=== PATIENT | male | born 1980 | race Caucasian/White ===

== ENCOUNTER 2021-07-26 00:06 | Emergency (ER) | payer SELFPAY ==
[2021-07-26 00:09] VITALS: BP 123/75; PULSE 65; RESP 24; TEMP 36.6; O2SAT 100
--- NOTE | 2021-07-26 03:23 | PC.NURSE ---
pt walked to room states I feel better I'm just going to go . Advised to stay for eval walked out of ed
== END 2021-07-27 03:44 | disposition left against medical advice (07) ==
LOC: ANHED 03:28
DX: R10.9 Unspecified abdominal pain (principal)
CPT/HCPCS: 99199

== ENCOUNTER 2025-08-06 06:18 | Emergency (ER) | payer OTHER, SELFPAY ==
--- NOTE | ~2025-08-06 | XR_ITS ---
Examination: XR chest 1V portable Clinical History: cough, weakness Comparison: None Technique: Portable AP Findings: Heart size normal. Lungs clear. Mild hyperinflation. No acute bony abnormality. IMPRESSION: 1. No acute cardiopulmonary findings given portable technique. Reviewed, dictated and finalized at location R. CLERK
[2025-08-06 06:20] VITALS: BP 115/69; PULSE 89; RESP 20; TEMP 36.9; O2SAT 99
[2025-08-06 06:48] VITALS: BP 120/75; PULSE 88; RESP 17; O2SAT 97
[2025-08-06 06:49] VITALS: O2SAT 98
[2025-08-06 07:13] VITALS: BP 116/76; PULSE 83; RESP 19; O2SAT 98
[2025-08-06 07:27] LABS: Influenza A QL RT-PCR Negative (Negative); Influenza B QL RT-PCR Positive (Negative); RSV RNA, RT-PCR Negative (Negative); SARS-CoV-2 RNA PCR Negative (Negative)
--- OUTSIDE RECORDS SUMMARY | 2025-08-06 07:43 | XMS_ITS | Clinical Summary ---
Author Organization [facility] Address [address] [place] [id number] Care Team Providers Care Er Manager Name Role Phone Unavailable Primary Care Provider Unavailabl e Active Problems No known active problems Social History Tobacco Use Types Packs/Day Years Used Date Smoking Tobacco: Never Assessed Sex and Gender Information Value Date Recorded Sex Assigned at Male 11/08/2023 2:07 PM CDT Legal Sex Male 6:42 AM CDT Gender Identity Male 11/08/2023 2:07 PM CDT Sexual Orientation Straight 11/08/2023 2: 07 PM CDT Last Filed Vital Signs Vital Sign Reading Time Taken Comments Blood Pressure 100/70 03/14/2023 8:31 AM CDT Pulse - - Temperature - - Respiratory Rate - - Oxygen Saturation - - Inhaled Oxygen Concentration - - Weight 77.6 kg (171 lb) 03/14/2023 8:31 AM CDT Height 177.8 cm (5' 10) 03/14/2023 8:31 AM CDT Body Mass Index 24.54 03/14/2023 8:31 AM CDT Plan of Treatment Health Maintenance Due Date Last Done Comments HEPATITIS B VACCINES (2 of 3 - 19+ 3-dose series) 11/14/2006 10/17/2006, 10/17/2006, 06/14/2006, Additional history exists INFLUENZA VACCINE (#1) 2025 9, 07/19/2018, 06/30/2006 DTAP/TDAP/TD VACCINES (2 - T d or Tdap) 01/20/2031 01/20/2021 HPV VACCINES (No Doses Required) Completed Insurance [employer]ESS
--- OUTSIDE RECORDS SUMMARY | 2025-08-06 07:43 | XMS_ITS | Clinical Summary ---
Author Organization [id number] Address [address] [place] [id number] Care Team Providers Care Preschool Director Name Role Phone Osiel Ceja MD, Jemal Ortiz Primary Care Provide r Allergies No known active allergies Medications buPROPion XL (WELLBUTRIN XL) 300 mg 24 hr tablet Take 1 tablet (300 mg total) by mouth every morning 90 tablet 3 02/08/2023 Active Active Problems Problem Noted Date Diagnosed Date MONISHA (generalized anxiety disorder) 03/15/2022 Preventative health care 12/21/2021 Assessment & Plan (12/21/2021 2:05 PM CDT): Need blood before any medications are started Cannabis dependence 12/21/2021 Assessment & Plan (12/21/2021 2:06 PM CDT): Recommend he continues this instead of drinking because he seems to do much better than when he was drinking 6 beers a day Alcoholism 12/21/2021 Overview (12/21/2021): 6 pack a day Last time he drank was 1 month prior, he actually has this under control with THC Assessment & Plan (12/21/2021 2:07 PM CDT): Recommend to continue abstain from alcohol THC use is better for his overall well being currently Recurrent major depressive disorder, in partial remission 12/21/2021 Assessment & Plan (12/21/2021 2:06 PM CDT): Will likely start welbutrin to help with his focus, depression/anxiety. Need blood work to return first Attention deficit 12/21/2021 Overview (12/21/2021): Never officially dx was told this in past Assessment & Plan (12/21/2021 1:22 PM CDT): We discussed with his other conditions and treating adult attention issues, wellbutrin has good results, cheaper alternative than other medications, he is open to trying Immunizations Immunization Administration Dates Next Due Influenza, Quadrivalent, Selena l Culture-based MDCK, Antibiotic Free, Intramuscular 05/29/2019 Influenza, Quadrivalent, Spl it, Preservative Free, Intramuscular 07/19/2018 Tdap 01/20/2021 Medical History Medical History Date Comments Anxiety Depression Family History Relation Name Status Comments Father Alive Mother Alive Social History Tobacco Use Types Packs/Day Years Used Date Smoking Tobacco: Every Day Cigarettes [place]ig[employer]os Smokeless Tobacco: Never Tobacco Cessation:Ready to Q uit: Yes; Counseling Given: Yes AUDIT-C Answer Date Recorded Q1: How often do you have a drink containing alc ohol? Monthly or less 12/21/2021 Q2: How many drinks containi ng alcohol do you have on a typical day when you are drinking? 1 or 2 12/21/2021 Q3: How often do you have si x or more drinks on one occasion? 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 Gender Identity Male 02/24/2022 11:31 AM CDT Sexual Orientation Straight 02/24/2022 11 :31 AM CDT Last Filed Vital Signs Vital Sign Reading Time Taken Comments Blood Pressure 100/60 03/15/2022 11:02 AM CDT Pulse 97 03/15/2022 11:02 AM CDT Temperature 36.9 C (98.4 F) 03/15/2022 11:02 AM CDT Respiratory Rate 18 03/15/2022 11:02 AM CDT Oxygen Saturation 96% 03/15/2022 11:02 AM CDT Inhaled Oxygen Concentration - - Weight 71.7 kg (158 lb) 03/15/2022 11:02 AM CDT Height 177.8 cm (5' 10) 03/15/2022 11:02 AM CDT Body Mass Index 22.67 03/15/2022 11:02 AM CDT Plan of Treatment Not on file Care Teams Preschool Director Relationship Specialty Start Date End Date Jemal Cartagena Jr., MD [address] [place] [id number] PCP - General Internal Medicine 12/21/21
[2025-08-06 07:52] VITALS: BP 113/78; PULSE 82; RESP 21; O2SAT 98
--- NOTE | 2025-08-06 08:10 | ED_ITS ---
HPI - URI/Sore Throat General Chief Complaint: Upper Respiratory Infection Stated Complaint: Lethargic for 2 days with a cough Time Seen by Provider: 08/06/25 06:56 History of Present Illness HPI Narrative: For last 2 days, patient has not been feeling well, he is having some cough, had some nausea earlier, just feels tired with some body aches. No chest pain, no medical history Related Data Allergies Allergy/AdvReac Type Severity Reaction Status Date / Time No Known Allergies Allergy Verified 08/06/25 06:19 Review of Systems Review of Systems: All systems reviewed & are unremarkable except as noted in HPI and below Exam Narrative: EXAMINATION OF ORGAN SYSTEMS/BODY AREAS: Constitutional: Vital signs per nursing GENERAL:No acute distress, non-toxic appearing. HEAD: Normal with no signs of head trauma. EYES: EOMI, conjunctiva normal ENT: Some slight nasal congestion LUNGS: Nonlabored breathing. Clear to auscultation bilaterally HEART: Regular rate and rhythm ABD: Soft, nontender to palpation EXT: Normal range of motion SKIN: No rashes or lesions. NEURO: Alert. No gross focal sensory or strength deficits. PSYCH: Normal affect Course Vital Signs Vital signs: Vital Signs Temperature 98.4 F 08/06/25 06:20 Pulse Rate 89 08/06/25 06:20 Respiratory Rate 20 08/06/25 06:20 Blood Pressure 115/69 08/06/25 06:20 Pulse Oximetry 99 08/06/25 06:20 Temperature 98.4 F 08/06/25 06:20 Pulse Rate 82 08/06/25 07:52 Respiratory Rate 21 H 08/06/25 07:52 Blood Pressure 113/78 08/06/25 07:52 Pulse Oximetry 98 08/06/25 07:52 Oxygen Delivery Room Air 08/06/25 06:49 MDM MDM Narrative Medical decision making narrative: ED COURSE AND MEDICAL DECISION MAKING: This 45-year-old male patient presents with symptoms most suggestive of viral upper respiratory tract infection. Lungs are clear bilaterally without any respiratory distress or accessory muscle use. Swabs positive for flu. Chest x-ray negative for pneumonia He is very well-appearing here no distress, I have discussed the findings with him, will provide him a work note, as well as symptomatic medications/treatment. Discharged home in stable condition with expectant management. Return precautions were provided. Differential Diagnosis Differential Diagnosis: Pneumonia, flu, COVID, etc. Lab Data Labs: Lab Results 08/06/25 Range/Units 06:46 Influenza A (RT-PCR) Negative (Negative) Influenza B (RT-PCR) Positive A (Negative) RSV (RT-PCR) Negative (Negative) SARS-CoV-2 RNA (RT-PCR) Negative (Negative) Imaging Data Radiologist's impression: ITS Impressions Chest X-Ray 08/06/25 07:35 IMPRESSION: 1. No acute cardiopulmonary findings given portable technique. Discharge Plan Discharge Clinical Impression: Influenza Patient Disposition: Home Condition: Stable Instructions: Influenza (ED) Additional Instructions: You did test positive for flu; keep hydrated, you can take ibuprofen and Tylenol for symptoms, and the nausea medicine prescribed. you can come back to the ER for any further issues. Patient Language: Maltese Prescriptions: New famotidine 20 mg tablet 20 mg PO DAILY Qty: 30 0RF ondansetron 4 mg tablet,disintegrating 4 mg PO Q8H PRN (Reason: nausea and vomiting) Qty: 10 0RF Follow-up/Referrals: PHYSICIAN,POWER GENERATION TECHNICIAN [Primary Care Provider, Internal Medicine] Stand Alone Forms: Work/School Release IP
== END 2025-08-06 07:54 | disposition home or self-care (01) ==
LOC: ANHED 07:41
PROVIDERS: Student in an Organized Health Care Education/Training Program; Emergency Provider Emergency Medicine
DX: J11.1 Influenza due to unidentified influenza virus with other respiratory manifestations (principal); Z20.822 Contact with and (suspected) exposure to COVID-19
CPT/HCPCS: 71045; 87637; 99283